=== PATIENT | male | born 1990 | race Hispanic/Latino ===

== ENCOUNTER 2023-10-29 17:20 | Inpatient (IN) | payer BC, SELFPAY ==
[2023-10-29] VITALS (18 sets, daily range): BP systolic 114–145; BP diastolic 62–79; PULSE 89–118; RESP 16–24; TEMP 36.8–37.7; O2SAT 99–100; BMI 29.6
--- NOTE | ~2023-10-29 | CT_ITS ---
EXAMINATION: CT chest abdomen pelvis w con DATE: 10/29/2023 18:45 INDICATION: Tachycardia. Anemia. Dyspnea. TECHNIQUE: Computed tomography (CT) of the chest, abdomen, and pelvis was performed with 100 mL Omnip aque 350 intravenous contrast. Automated exposure control and iterative reconstruction technique were employed. The dose-length product was 826.25 mGy-cm. COMPARISON: None FINDINGS: CHEST CT: The lungs demonstrate mild atelectasis. No pleural effusion. The heart size is normal. No pericardial effusion. There is mild thoracic spondylosis. ABDOMEN/PELVIS CT: There is a nodular surface contour, consistent with cirrhosis. There is a periumbilical portacaval sh unt. Esophageal varices are noted. There is moderate splenomegaly. The gallbladder is normal in size. Gallbladder wall thickening is likely secondary to chronic liver disease. The pancreas, adrenal glan ds, and left kidney are normal. There is a 6 mm cyst in right kidney. There are no dilated loops of b owel. The appendix is normal. Intra-abdominal edema is noted. There are no pathologically enlarged ly mph nodes. There is mild lumbar spondylosis. IMPRESSION: 1. Cirrhosis of the liver with portal venous hypertension. Reviewed, dictated and finalized at location A.
--- NOTE | ~2023-10-29 | XR_ITS ---
EXAMINATION: XR chest 2V DATE: 10/29/2023 17:40 INDICATION: Intermittent shortness of breath. TECHNIQUE: Frontal and lateral views of the chest were obtained. COMPARISON: None. FINDINGS: There is no pneumonia, pleural effusion, or pneumothorax. The heart size is normal. IMPRESSION: 1. No acute cardiopulmonary disease. Reviewed, dictated and finalized at location A.
--- NOTE | 2023-10-29 17:22 | ECG_ITS ---
Test Date: 2023-10-29 17:30:27 Measurements Intervals [place] Rate: 113 P: 61 LA: 157 QRS: 60 QRSD: 69 T: 39 QT: 264 QTc: 363 Interpretive Statements SINUS TACHYCARDIA ST DEVIATION AND MODERATE T-WAVE ABNORMALITY, CONSIDER LATERAL ISCHEMIA [-0.1+ mV T-WAVE IN I/aVL/V5/V6] No previous ECG available for comparison Electronically Signed On 10-30-2023 14:34:03 CDT by Jamie Freeman M.D.
--- NOTE | 2023-10-29 17:39 | ED.SOB ---
HPI - SOB/Dyspnea General Chief Complaint: Shortness of Breath/Dyspnea <Conner Jerome PA-C - Last Filed: 10/29/23 20:17> Stated Complaint: sob, Racing heart <Conner Jerome PA-C - Last Filed: 10/29/23 20:17> Time Seen by Provider: 10/29/23 17:25 <Conner Jerome PA-C - Last Filed: 10/29/23 20:17> Source: patient <Conner Jerome PA-C - Last Filed: 10/29/23 20:17> Mode of arrival: ambulatory <DAINA Bueno Last Filed: 10/29/23 20:17> Limitations: no limitations <Conner Jerome PA-C - Last Filed: 10/29/23 20:17> History of Present Illness HPI Narrative: This is a 33-year-old male with no pertinent PMH who presents to the ED for chief complaint of shortness of breath intermittent for the past couple of weeks. He works as a bus driver supervisor and states that he gets extremely winded whenever he starts to lift or carry anything. Reports that he is able to walk across the room but any further exertion causes him to become dyspneic. He also endorses occasional palpitations and feeling a racing heartbeat. does state that he had a recent upper respiratory infection a couple of weeks ago that he got over in 5 days. States that he had a similar episode like this few years ago and they did not find anything wrong. additionally states that he has had some intermittent neuro bright red rectal bleeding the usually only lasts for a week or 2. States that sometimes he gets spontaneous nose bleeds that self resolved as well. States that he does take regular iron supplements. Denies any current fevers, chills, sweats, cough, chest pain, back pain, abdominal pain, nausea, syncope, urinary symtpoms. Endorses social drinking and denies any drug use. <Conner Jerome PA-C - Last Filed: 10/29/23 20:17> Related Data Home Medications: Home Medications Medication Instructions Recorded Confirmed No Home Medications 10/29/23 10/29/23 <Conner Jerome PA-C - Last Filed: 10/29/23 20:17> Allergies/Adverse Reactions: Allergies Allergy/AdvReac Type Severity Reaction Status Date / Time No Known Allergies Allergy Verified 10/29/23 18:04 <Conner Jerome PA-C - Last Filed: 10/29/23 20:17> Review of Systems Review of Systems: All systems as dictated in HPI <Conner Jerome PA-C - Last Filed: 10/29/23 20:17> [facility] Past Medical History Medical History: Medical History (Updated 10/29/23 @ 20:40 by Dominik Patel MD) Alcohol abuse Anemia Cirrhosis of liver GI bleed <Conner Jerome PA-C - Last Filed: 10/29/23 20:17> Social History Social History: Social History (Updated 10/29/23 @ 20:04 by MELINDA Fong) Smoking status: Current some day smoker Smokeless tobacco user: other Additional smoking assessment comments: Patient admits to smoking marijuana only 3-4 days out of the week. Alcohol intake: current Drinks per week: 4 Alcohol use details: Hard liquor -[employer] Substance use: current Substance use type: marijuana Do You Feel Safe in your Home?: Yes Lack of Transportation: No Education: High School Diploma/GED Occupation/Education: occupation Additional occupation/education comments: Floral Decorator for [employer] <Conner Jerome PA-C - Last Filed: 10/29/23 20:17> Exam Narrative: GENERAL: Well-appearing, well-nourished, and in no acute distress. HEAD: Normocephalic, atraumatic. EYES: PERRLA and EOMI. ENT: Nares clear, no rhinorrhea or epistaxis. Mucous membranes moist. Oropharynx without tonsillar hypertrophy exudate or other lesions. NECK: Supple. No adenopathy or masses. CHEST: No respiratory distress. Clear to auscultation. No wheezes rales or rhonchi HEART: Tachycardic in the 115s. Regular rhythm. No murmur heard. Normal peripheral pulses. ABDOMEN: Soft, nontender, nondistended, normal active bowel sounds. MSK: Normal range of motion. No edema. SKIN: Warm, dry, no rash. Skin is jaundiced NEURO: Alert and oriented x4. No fo
[2023-10-29 17:54] LABS: Alanine Aminotransferase 23 U/L (6-50); Albumin Level 3.6 g/dL (3.5-5.1); Alkaline Phosphatase 164 U/L (38-126); Anion Gap 15 mmol/L (4-12); Aspartate Amino Transferase 58 U/L (17-59); Bilirubin,Total 1.7 mg/dL (0.2-1.3); Blood Urea Nitrogen 10 mg/dL (9-20); Calcium 8.1 mg/dL (8.4-10.2); Carbon Dioxide 17 mmol/L (22-30); Chloride 106 mmol/L (98-107); Estimated CRCL calculation 103 ml/min; Estimated Glomerular Filt Rate > 60; Glucose 108 mg/dL (65-110); Potassium 3.6 mmol/L (3.4-5.0); Sodium 138 mmol/L (137-145)
[2023-10-29 17:55] LABS: Basophils Percent Auto 0.1 % (0.2-1.2); Eosinophils Percent Auto 0.4 % (0-4.4); Immature Granulocyte Absolute 0.06 K/mm3 (0.00-0.031); Immature Granulocyte Percent A 0.8 % (0-0.5); Lymphocytes Absolute Auto 1.29 K/mm3 (0.9-3.2); Lymphocytes Percent Auto 17.9 % (18.3-44.2); Mean Corpuscular HGB Conc 24.4 g/dl (32-36); Mean Corpuscular Hemoglobin 15.8 pg (26-34); Mean Corpuscular Volume 64.7 fl (80-100); Monocytes Absolute Auto 0.4 K/mm3 (0.1-0.6); Monocytes Percent Auto 5.8 % (2.6-8.5); Neutrophils Absolute Auto 5.4 K/mm3 (1.3-6.7); Nucleated Red Blood Cells Perc 1.4 % (0.0-0.2); Platelet Count Result 206 k/mm3 (150-375); Red Blood Count 1.84 M/mm3 (4.6-6.20); Red Cell Distribution Width 20.7 % (11.5-14.5); White Blood Count 7.2 K/mm3 (4.5-10.0)
[2023-10-29 18:09] LABS: INR 1.3; Prothrombin Time 16.3 Seconds (11.1-14.7)
[2023-10-29 18:10] LABS: Partial Thromboplastin Time 31.9 Seconds (22.3-36.8)
[2023-10-29 18:15] LABS: D Dimer < 0.27 ug/mL (<0.48)
[2023-10-29 18:21] LABS: Iron 18 ug/dL (49-181); NT Pro B Type Natriuretic Pept 351 pg/mL (19.9-100); Troponin I 0.032 ng/mL (0.000-0.034)
[2023-10-29 18:22] LABS: Hemoglobin 2.9 g/dL (14.0-18.0)
[2023-10-29 18:23] LABS: Hematocrit 11.9 % (42.0-52.0)
[2023-10-29 18:25] LABS: Anisocytosis 2+; Hypochromasia 3+; Microcytosis 2+ (NORMAL); Platelet Estimate Adequate (Adequate); Tear Drop Cells 1+
[2023-10-29 18:27] LABS: Schistocytes None Seen
[2023-10-29 18:29] LABS: Lactate Dehydrogenase 159 U/L (120-246)
[2023-10-29 18:30] LABS: Percent Iron Saturation 4 % (20-50)
[2023-10-29 18:35] LABS: CRP 0.6 mg/dL (<1.0)
[2023-10-29 18:36] LABS: Transferrin 359 mg/dL (206-381)
[2023-10-29 18:43] LABS: Immature Reticulocyte Fraction 30.2 % (3.0-15.9); Reticulocyte Hemoglobin Conten 12.7 pg (28.2-36.6); Reticulocyte Percent 1.73 % (0.7-4.3); Reticulocytes Absolute 0.03 10^6/uL (0.02-0.10)
[2023-10-29 18:54] LABS: Thyroid Stimulating Hormone Reflex 0.607 uIU/mL (0.465-4.68)
[2023-10-29 18:59] LABS: Ferritin 4.38 ng/mL (17.9-464)
[2023-10-29 19:27] LABS: Add Urine Microscopic? YES; Appearance Urine Clear (Clear); Bilirubin Urine Negative (Negative); Blood Urine Negative (Negative); Color Urine Dark Yellow (Yellow); Glucose Urine UA Negative (Negative); Ketones Urine Negative (Negative); Leukocyte Esterase Ur Negative LEU/UL (Negative); Nitrate Urine Negative (Negative); Protein Urine Negative (Negative); Specific Grav Ur > 1.045 (1.001-1.035)
[2023-10-29 19:36] LABS: Folic Acid 3.9 ng/mL (2.76->20)
[2023-10-29] MEDS: SODIUM CHLORIDE 0.9% IV 250 ML 30 ML IV CONT (19:37)
[2023-10-29] MEDS: TUBING, BLOOD PLUM PUMP TUBING 1 EACH XX (19:37)
[2023-10-29 19:41] LABS: Amphetamine Screen Urine Negative (Negative); Barbiturate Screen Urine Negative (Negative); Benzodiazepines Screen Urine Negative (Negative); Cannabinoid Screen Urine Positive (Negative); Cocaine Screen Urine Negative (Negative); Methadone Screen Urine Negative (Negative); Opiate Screen Urine Negative (Negative); Phencyclidine Screen Urine Negative (Negative)
--- NOTE | 2023-10-29 19:55 | PM.IMHP ---
H&P: HPI History of Present Illness Date/Time: 10/29/23 19:55 Chief Complaint: This very pleasant 33-year-old male patient with no known past medical history hoarding to the patient presented to the emergency room this evening with complaints of shortness of breath intermittently for the past couple of weeks. Patient states activity such as working and ambulation exacerbates his dyspnea. He endorses that the feeling of dyspnea has been intermittent and cannot identify any factors that improved it at times, stating that it improved on its own or any factors that knowingly made it worse except for exertion. Patient does identify that he has had approximately 1 month of intermittent bright red stools. He denies any nausea, vomiting, diarrhea, abdominal pain when he has had this showing of rectal bleeding. He last saw bright red blood in his stool 1 week ago. Patient does not take any anticoagulants. He advised ER physician special event assistant that he takes regular iron supplementation, however he tells this provider that he does not take any home medications at all. He endorses that he has not seen a primary care provider in his adult life, and has only been seen in emergency rooms for acute needs over the course of the past 5 years once. Patient does admit to drinking alcohol a couple of times weekly and when he does it is hard liquor. He denies any use of nicotine but does smoke marijuana multiple times weekly. He does not partake in any other illicit drugs according to the patient. Patient denies that today there was any worsening of his symptoms he just felt as though it was time to come to the emergency room for evaluation. Specifically patient denies any acute abdominal pain, nausea, vomiting, diarrhea at this time. Patient endorses that he has not ever had a colonoscopy or EGD, and with previous episodes of vomiting over the past years he has never had any hematemesis. Upon arrival to the emergency room he was found to be tachycardic. EKG showing sinus tach with T-wave flattening in lead 1, aVL, V5 and V6. CBC was significant for hemoglobin of 2.9. No leukocytosis and no thrombocytopenia with platelets at 206. Metabolic panel is unremarkable. Retic count was 12.7, PT/PTT/INR all normal at 16.3/31.9 and 1.3 respectively. Iron is low at 18, total iron binding capacity is 472, % saturation is 4, transferrin is 359, ferritin is 4.38. ALT is 28, AST is 58, total bilirubin is 1.7, alk-phos is 164. Patient has a normal troponin, CRP and LDH. Alk-phos is minimally elevated at 164. Haptoglobin is pending. Chest x-ray was negative for any acute cardiopulmonary abnormalities. CT of the chest abdomen pelvis with contrast showing cirrhosis of the liver with portal venous hypertension. ER provider, DAMIEN Ross reportedly performed bedside BIBIANA that was negative for any occult blood. He spoke with GI, Dr. Arceo as well as seed tester, Dr. Yang regarding this patient and both advised they will consult with Dr. Yang requesting ICU admission at this time due to the severity of the anemia. 3 units packed red blood cells are ordered in ER and 1st unit infusing. Review of Systems Review of Systems: All systems reviewed & are unremarkable except as noted in HPI and below PMFSH Past Medical History Medical History (Updated 10/29/23 @ 20:23 by MELINDA Fong) Alcohol abuse Anemia Cirrhosis of liver GI bleed Social History Social History (Updated 10/29/23 @ 20:04 by MELINDA Fong) Smoking status: Current some day smoker Smokeless tobacco user: other Additional smoking assessment comments: Patient admits to smoking marijuana only 3-4 days out of the week. Alcohol intake: current Drinks per week: 4 Alcohol use details: Hard liquor -[employer] Substance use: current Substance use type: marijuana Do You Feel Safe in your Home?: Yes Lack of Transportation: No Education: High School Diploma/GED [employer]
--- NOTE | 2023-10-29 20:34 | ECG_ITS ---
Test Date: 2023-10-29 20:46:21 Measurements Intervals [place] Rate: 96 P: 51 PA: 152 QRS: 60 QRSD: 73 T: 32 QT: 307 QTc: 389 Interpretive Statements SINUS RHYTHM ST DEVIATION AND MODERATE T-WAVE ABNORMALITY, CONSIDER LATERAL ISCHEMIA [-0.1+ mV T-WAVE IN I/aVL/V5/V6] Compared to ECG 10/29/2023 17:30:27 Sinus tachycardia no longer present T-wave abnormality still present Possible ischemia still present Electronically Signed On 10-30-2023 14:41:27 CDT by Jamie Freeman M.D.
[2023-10-29 21:27] LABS: Troponin I 0.039 ng/mL (0.000-0.034)
[2023-10-29] MEDS: IRON SUCROSE COMPLEX 100 MG in SODIUM CHLORIDE 0.9% IV 50 ML 220 MG IVPB (21:40)
[2023-10-29 22:19] LABS: Folic Acid 4.6 ng/mL (2.76->20)
[2023-10-30] VITALS (31 sets, daily range): BP systolic 102–140; BP diastolic 65–88; PULSE 66–92; RESP 12–23; TEMP 36.6–37.1; O2SAT 100
--- NOTE | 2023-10-30 04:03 | ADMGEN ---
This patient, Mansoor Esteban, was admitted to Intensive Care Unit-11 10/29/232099. Patient/family oriented to hospital policies and general routines including ID bracelet, bed and alarms, visiting hours, pain management, procedures, bathroom and other care routines, personal items, smoking policy, room service/diet, and visiting hours. Information on how to activate the Rapid Response Team has been discussed. Patient/Family are encouraged to report perceived risks to care and to ask questions if they do not understand what they are told or what they should do.
[2023-10-30 05:42] LABS: Basophils Percent Auto 0.2 % (0.2-1.2); Immature Granulocyte Absolute 0.06 K/mm3 (0.00-0.031); Immature Granulocyte Percent A 1.4 % (0-0.5); Immature Platelet Fraction Pct 5.3 % (0.9-11.2); Lymphocytes Absolute Auto 0.87 K/mm3 (0.9-3.2); Mean Corpuscular HGB Conc 28.6 g/dl (32-36); Mean Corpuscular Hemoglobin 21.1 pg (26-34); Mean Platelet Volume 10.3 fl (7.4-10.4); Monocytes Absolute Auto 0.2 K/mm3 (0.1-0.6); Monocytes Percent Auto 4.6 % (2.6-8.5); Neutrophils Percent Auto 71.8 % (45.5-73.1); Nucleated Red Blood Cells Perc 1.4 % (0.0-0.2); Platelet Count Result 167 k/mm3 (150-375); Red Blood Count 2.46 M/mm3 (4.6-6.20); Red Cell Distribution Width 25.2 % (11.5-14.5); White Blood Count 4.1 K/mm3 (4.5-10.0)
[2023-10-30 05:47] LABS: Hemoglobin 5.2 g/dL (14.0-18.0)
[2023-10-30 05:48] LABS: Hematocrit 18.2 % (42.0-52.0)
[2023-10-30 05:50] LABS: INR 1.3; Prothrombin Time 16.4 Seconds (11.1-14.7)
[2023-10-30 05:56] LABS: Alanine Aminotransferase 19 U/L (6-50); Albumin Level 3.4 g/dL (3.5-5.1); Alkaline Phosphatase 149 U/L (38-126); Anion Gap 11 mmol/L (4-12); Aspartate Amino Transferase 48 U/L (17-59); Bilirubin,Total 2.4 mg/dL (0.2-1.3); Blood Urea Nitrogen 7 mg/dL (9-20); Carbon Dioxide 19 mmol/L (22-30); Chloride 108 mmol/L (98-107); Estimated CRCL calculation 131 ml/min; Estimated Glomerular Filt Rate > 60; Glucose 83 mg/dL (65-110); Magnesium 2.2 mg/dL (1.6-2.3); Potassium 3.7 mmol/L (3.4-5.0); Sodium 138 mmol/L (137-145)
[2023-10-30 06:16] LABS: Hypochromasia 3+; Platelet Estimate Adequate (Adequate)
[2023-10-30 06:17] LABS: Anisocytosis 2+; Microcytosis 2+ (NORMAL)
[2023-10-30 06:18] LABS: Schistocytes None Seen
[2023-10-30] MEDS: SODIUM CHLORIDE 0.9% IV 250 ML 30 ML IV CONT ×2 (07:00→14:30)
--- NOTE | 2023-10-30 09:48 | WPDCNINT ---
Assessment and Plan Assessment and plan (1) Anemia: Qualifiers: Anemia type: iron deficiency Iron deficiency anemia type: unspecified iron deficiency Qualified Code(s): D50.9 - Iron deficiency anemia, unspecified Code(s): D64.9 - Anemia, unspecified Status: Acute Assessment and Plan: Patient presented with dyspnea, palpitations, fatigue, bright red blood per rectum intermittently for the last 1 month. Last bleeding noted was 1 week prior to admission -in the ER patient's hemoglobin was 2.9 which could explain his symptoms -patient has been transfused 3 units of packed RBCs, hemoglobin up to 5.2 -4th unit of packed RBCs is being transfused this time, will recheck hemoglobin -coags are within normal limits -continue to monitor closely (2) GI bleed: Qualifiers: GI bleed type/associated pathology: unspecified gastrointestinal hemorrhage type Qualified Code(s): K92.2 - Gastrointestinal hemorrhage, unspecified Code(s): K92.2 - Gastrointestinal hemorrhage, unspecified Status: Suspected Assessment and Plan: Patient has bright red blood per rectum intermittently for the last 1 month, last bleeding noted was 1 week prior to admission -patient has a history of bright blood per rectum in 2021 when he was admitted to [facility] and colonoscopy, biopsies were done which are noted in the HPI of my consultation note -discussed with GI, appreciated the evaluation -colonoscopy and endoscopy planned for 10/31/2023 -clear liquid diet for now -NPO after midnight (3) Cirrhosis of liver: Qualifiers: Hepatic cirrhosis type: alcoholic cirrhosis Ascites presence: without ascites Qualified Code(s): K70.30 - Alcoholic cirrhosis of liver without ascites Code(s): K74.60 - Unspecified cirrhosis of liver Status: Chronic Assessment and Plan: Patient has a history of alcohol abuse -10/28: Showed cirrhosis of liver with portal venous hypertension CT chest, abdomen, pelvis -patient will need to follow-up with hepatology upon discharge from the hospital (4) Alcohol abuse: Code(s): F10.10 - Alcohol abuse, uncomplicated Status: Chronic Assessment and Plan: History of alcohol abuse -continues to drink few times a week, states he drinks beer and hard liquor -counseled patient on cessation of drinking alcohol altogether with CT scan of the abdomen showing cirrhosis with portal hypertension -will watch for alcohol withdrawal -continue folic acid and thiamine and -patient has been started Librium Plan DVT prophylaxis: SCDs, no chemoprophylaxis secondary to severe anemia and GI bleed Stress ulcer prophylaxis: Protonix IV q.12 hours Nutrition: Clear liquid diet for now, NPO after midnight for EGD and colonoscopy on 10/31/2023 Code Status: Full code Critical Care Time Spent: 47 minutes Discussed with patient, his sister and updated them with patient's condition and plan of care. I also discussed with Dr. Arceo (GI) Due to a high probability of clinically significant, life threatening deterioration, the patient required my highest level of preparedness to intervene emergently and I personally spent this critical care time directly and personally managing the patient. This critical care time included obtaining a history; examining the patient; pulse oximetry; ordering and review of studies; arranging urgent treatment with development of a management plan; evaluation of patient's response to treatment; frequent reassessment; and discussions with other providers. It was exclusive of separately billable procedures and treating other patients and teaching time. Please see Assessment and Plan section and the rest of the note for further information on patient assessment and treatment This dictation may have been done utilizing a voice recognition system. Attempts have been made to correct errors. However, there may be uncorrected grammatical, spelling,
[2023-10-30] MEDS: FOLIC ACID 1 MG TABLET PO (10:30)
[2023-10-30] MEDS: THIAMINE HCL 100 MG TABLET PO (10:33)
[2023-10-30 10:55] LABS: Basophils Percent Auto 0.2 % (0.2-1.2); Eosinophils Percent Auto 0.7 % (0-4.4); Hematocrit 22.3 % (42.0-52.0); Immature Granulocyte Absolute 0.08 K/mm3 (0.00-0.031); Immature Granulocyte Percent A 1.8 % (0-0.5); Immature Platelet Fraction Pct 5.4 % (0.9-11.2); Lymphocytes Absolute Auto 0.67 K/mm3 (0.9-3.2); Lymphocytes Percent Auto 14.7 % (18.3-44.2); Mean Corpuscular Hemoglobin 22.9 pg (26-34); Mean Corpuscular Volume 76.1 fl (80-100); Monocytes Absolute Auto 0.2 K/mm3 (0.1-0.6); Monocytes Percent Auto 3.7 % (2.6-8.5); Neutrophils Absolute Auto 3.6 K/mm3 (1.3-6.7); Neutrophils Percent Auto 78.9 % (45.5-73.1); Nucleated Red Blood Cells Perc 1.5 % (0.0-0.2); Platelet Count Result 154 k/mm3 (150-375); Red Blood Count 2.93 M/mm3 (4.6-6.20); Red Cell Distribution Width 25.9 % (11.5-14.5); White Blood Count 4.6 K/mm3 (4.5-10.0)
--- NOTE | 2023-10-30 11:07 | WPDGICN ---
Assessment and Plan Assessment and plan (1) GI bleed: Qualifiers: GI bleed type/associated pathology: unspecified gastrointestinal hemorrhage type Qualified Code(s): K92.2 - Gastrointestinal hemorrhage, unspecified Code(s): K92.2 - Gastrointestinal hemorrhage, unspecified Status: Suspected Assessment and Plan: had similar episode 2021 will repeat egd and colonoscopy to check for source of bleeding also noted new diagnosis of cirrhosis (2) Rectal bleeding: Code(s): K62.5 - Hemorrhage of anus and rectum Status: Acute (3) Acute on chronic anemia: Code(s): D64.9 - Anemia, unspecified Status: Acute Assessment and Plan: monitor for more signs of bleeding keep hgb>7 (4) Cirrhosis of liver: Qualifiers: Hepatic cirrhosis type: alcoholic cirrhosis Ascites presence: without ascites Qualified Code(s): K70.30 - Alcoholic cirrhosis of liver without ascites Code(s): K74.60 - Unspecified cirrhosis of liver Status: Chronic Assessment and Plan: h/o alcohol abuse will complete full liver work up (5) Alcohol abuse: Code(s): F10.10 - Alcohol abuse, uncomplicated Status: Chronic GI Consult Note Consult date/time: 10/30/23 11:07 Reason for consult: symptomatic anemia, new diagnosis of cirrhosis HPI: Mansoor Esteban is a 33 year old male with history of alcohol abuse (used to be daily heavy drinker for years but says that last 2-3 years only socially), anemia (admitted to [facility] in 2021 for similar symptoms) here with symptomatic anemia. He says that for last month noted intermittent bright red blood per rectum intermittently and lately more dyspnea, palpitation, fatigue. Denies any nausea, vomiting, diarrhea, abdominal pain. Patient is not on any anticoagulation, does not take any medications at home and last time saw doctor was when had similar episode of GIB 2021 (also required blood transfusion). Smokes marijuana but denies any other illicit drugs. ER patient was found to have a hemoglobin of 2.9, INR of 1.3, platelets of 206, normal WBC, normal renal function. Low ferritin 4, ALT 28 AST 58, total bilirubin 1.7, alk phos 164. Normal LDH. Chest x-ray did not show any acute cardiopulmonary abnormalities. CT of the chest abdomen pelvis showed cirrhosis of the liver with portal venous hypertension. Records reviewed when was admitted at [facility] from 10/11/2021 TO 10/14/2021 with blood in stools, severe anemia with a hemoglobin of 3.7 requiring a total 5 units of packed RBC transfusions. Right upper quadrant ultrasound was consistent with hepatic steatosis: No gallstones were visualized at that time. Hepatitis panel was negative at that time. Colonoscopy showed nonbleeding internal hemorrhoids. Diffuse area of mild friable with contact bleeding mucosa was found in the entire colon terminal ileum appeared normal. Large bowel random colon biopsy with normal colonic mucosa, he did not have EGD. Currently getting blood transfusion. Review of Systems Constitutional: Constitutional: Reports fatigue and Reports lethargy Eyes: Eyes: Denies blurry vision ENT: Reports Normal hearing present and Denies neck pain Cardiovascular: Cardiovascular: Reports lightheadedness Respiratory: Respiratory: Reports dyspnea on exertion Gastrointestinal: Gastrointestinal: Reports hematochezia Genitourinary: Genitourinary: Denies dysuria Musculoskeletal: Musculoskeletal: Denies neck pain Integumentary/Breasts: Skin/Breast: Denies dry skin Neurologic: Reports Normal hearing present Psychiatric: Psychiatric: Denies anxiety Endocrine: Endocrine: Denies change in body appearance Allergic/Immunologic: Allergic/Immunologic: Denies urticaria PMFSH Past Medical History Medical History (Updated 10/30/23 @ 11:12 by Alberto Messer MD) Acute on chronic anemia Alcohol abuse Anemia Cirrhosis of liver GI bleed Rectal blee
[2023-10-30 11:15] LABS: Hemoglobin 6.7 g/dL (14.0-18.0)
[2023-10-30 11:17] LABS: Platelet Estimate Slightly Decreased (Adequate)
[2023-10-30 11:18] LABS: Anisocytosis 2+; Hypochromasia 2+; Microcytosis 2+ (NORMAL); Ovalocytes 1+
[2023-10-30 11:19] LABS: Basophilic Stippling 1+; Schistocytes None Seen
[2023-10-30] MEDS: DEXTROSE 5%/0.9% SOD CHL 1,000 ML 125 ML IV CONT ×2 (11:28→20:01)
[2023-10-30] MEDS: PANTOPRAZOLE SODIUM IV 40 MG VIAL IV PUSH ×2 (11:31→20:01)
--- NOTE | 2023-10-30 12:10 | PM.IMPN ---
Progress Note: A&P Assessment and Plan (1) Anemia: Qualifiers: Anemia type: iron deficiency Iron deficiency anemia type: unspecified iron deficiency Qualified Code(s): D50.9 - Iron deficiency anemia, unspecified Code(s): D64.9 - Anemia, unspecified Status: Acute Assessment and Plan: Patient presented with dyspnea, palpitations and fatigue with complaints of bright red blood per rectum intermittently for the last 1 month. Last bleeding noted was 1 week prior to admission. In the ER patient's hemoglobin was 2.9. Patient was transfused 3 units of packed RBCs that brought his Hgb to 5.2. 4th unit of packed RBCs transfused and repeat hemoglobin 6.7 PT 16.3 with INR 1.3 and normal PTT. WBC and platelet counts normal. No schistocytes seen. LDH normal. [place] profound anemia related to acute blood loss. Consider hereditary hemorrhagic telangeictasis which can cause pulm HTN but sure this would lead to cirrhosis. . Continue to trend HH and transfuse as needed (2) GI bleed: Qualifiers: GI bleed type/associated pathology: unspecified gastrointestinal hemorrhage type Qualified Code(s): K92.2 - Gastrointestinal hemorrhage, unspecified Code(s): K92.2 - Gastrointestinal hemorrhage, unspecified Status: Suspected Assessment and Plan: Patient has bright red blood per rectum intermittently for the last 1 month. Patient has a history of bright blood per rectum in 2021 when he was admitted to [facility]. Hgb 3.7 and received 5U PRBCs. RUQ US showed hepatic steatosis. Colonoscopy showed nonbleeding internal hemorrhoids, diffuse area of mild friable with contact bleeding mucosa t/o colon but terminal ileum appeared normal. Small-bowel biopsy with normal small intestinal mucosa. Large bowel random colon biopsy with normal colonic mucosa. CT of the Abd/pelvis was concerning for mild hepatic splenomegaly, peripheral wedge-shaped areas of hypo attenuation in the left kidney may represent pyelonephritis or renal infarcts and stranding surrounding the 2nd and 3rd portions of the duodenum may represent duodenitis. Findings suspicious for sub acute to chronic findings of inflammatory bowel disease including submucosal fat deposition in the terminal ileum, transverse and ascending colon with mild adjacent soft tissue stranding. CT Abd/Pelvis here showing liver cirrhosis with portal venous HTN. GI consulted. Plan for EGD and colonoscopy. Appreciate their input. Clear liquid diet for now Continue PPI. NPO after midnight (3) Cirrhosis of liver: Qualifiers: Ascites presence: without ascites Hepatic cirrhosis type: alcoholic cirrhosis Qualified Code(s): K70.30 - Alcoholic cirrhosis of liver without ascites Code(s): K74.60 - Unspecified cirrhosis of liver Status: Chronic Assessment and Plan: Patient has a history of alcohol abuse. RUQ US in 2021 showing hepatic steatosis but CT Abd here showing liver cirrhosis. Will need workup for cirrhosis; some levels will be inaccurate since he has received multiple transfusions. He was educated about the benefits of abstaining from alcohol (4) Alcohol abuse: Code(s): F10.10 - Alcohol abuse, uncomplicated Status: Chronic Assessment and Plan: History of alcohol abuse. He admits to drinking 2 per weekend but admitted to consuming more to other providers. Patient was counseled on benefits of cessation of drinking alcohol altogether CIWA protocol started but score low Continue Librium, folic acid and thiamine Plan DVT prophylaxis: SCDs, no chemoprophylaxis secondary to severe anemia and GI bleed Stress ulcer prophylaxis: Protonix IV q.12 hours Nutrition: Clear liquid diet for now, NPO after midnight for EGD and colonoscopy on 10/31/2023 Code Status: Full code Subjective Date/time seen: 10/30/23 12:10 Interval history: 33yo healthy male here for SOB. Patient was unaware that he had cirrhosis. He h
[2023-10-30 12:28] LABS: Glucose Point of Care 80 mg/dl (65-105)
[2023-10-30] MEDS: polyethylene glycoL 3350 238 GM BOTTLE PO (17:30)
[2023-10-30 18:45] LABS: Hematocrit 26.3 % (42.0-52.0); Hemoglobin 7.6 g/dL (14.0-18.0)
[2023-10-30] MEDS: BISACODYL 5 MG TABLET EC 20 MG PO (18:49)
[2023-10-30 20:09] LABS: Glucose Point of Care 127 mg/dl (65-105)
[2023-10-30 21:08] LABS: IFOB Positive Control Positive; Immunochemical Fecal Occult Bl Negative (N)
[2023-10-30 21:29] LABS: Hematocrit 25.8 % (42.0-52.0); Hemoglobin 7.5 g/dL (14.0-18.0)
[2023-10-30 23:21] LABS: Glucose Point of Care 81 mg/dl (65-105)
[2023-10-31] VITALS (10 sets, daily range): BP systolic 103–127; BP diastolic 65–78; PULSE 72–102; RESP 18–22; TEMP 36.6–37.2; O2SAT 97–100
[2023-10-31] MEDS: chlordiazePOXIDE (*CRX) 25 MG CAPSULE PO ×2 (00:17→06:33)
[2023-10-31] MEDS: MAGNESIUM CITRATE 300 ML BTL PO (00:17)
[2023-10-31] MEDS: ONDANSETRON INJ 4 MG/2 ML VIAL IV PUSH (01:07)
[2023-10-31 05:00] LABS: Basophils Percent Auto 0.4 % (0.2-1.2); Eosinophils Absolute Auto 0.1 K/mm3 (0-0.3); Eosinophils Percent Auto 0.8 % (0-4.4); Hematocrit 26.1 % (42.0-52.0); Hemoglobin 7.6 g/dL (14.0-18.0); Immature Granulocyte Percent A 1.4 % (0-0.5); Immature Platelet Fraction Pct 5.8 % (0.9-11.2); Lymphocytes Absolute Auto 0.71 K/mm3 (0.9-3.2); Mean Corpuscular HGB Conc 29.1 g/dl (32-36); Mean Corpuscular Hemoglobin 22.8 pg (26-34); Mean Corpuscular Volume 78.4 fl (80-100); Mean Platelet Volume 10.4 fl (7.4-10.4); Monocytes Absolute Auto 0.3 K/mm3 (0.1-0.6); Monocytes Percent Auto 4.2 % (2.6-8.5); Neutrophils Absolute Auto 5.9 K/mm3 (1.3-6.7); Neutrophils Percent Auto 83.2 % (45.5-73.1); Nucleated Red Blood Cells Perc 0.8 % (0.0-0.2); Platelet Count Result 172 k/mm3 (150-375); Red Blood Count 3.33 M/mm3 (4.6-6.20); Red Cell Distribution Width 25.5 % (11.5-14.5); White Blood Count 7.1 K/mm3 (4.5-10.0)
[2023-10-31 05:07] LABS: Alanine Aminotransferase 24 U/L (6-50); Albumin Level 3.6 g/dL (3.5-5.1); Alkaline Phosphatase 150 U/L (38-126); Anion Gap 11 mmol/L (4-12); Aspartate Amino Transferase 65 U/L (17-59); Bilirubin,Total 3.1 mg/dL (0.2-1.3); Blood Urea Nitrogen 3 mg/dL (9-20); Calcium 8.1 mg/dL (8.4-10.2); Carbon Dioxide 18 mmol/L (22-30); Chloride 109 mmol/L (98-107); Estimated CRCL calculation 151 ml/min; Estimated Glomerular Filt Rate > 60; Glucose 95 mg/dL (65-110); Magnesium 2.3 mg/dL (1.6-2.3); Phosphorus 3.6 mg/dL (2.5-4.5); Sodium 138 mmol/L (137-145)
[2023-10-31 05:08] LABS: Glucose Point of Care 88 mg/dl (65-105)
[2023-10-31 05:24] LABS: Platelet Estimate Adequate (Adequate)
[2023-10-31 05:25] LABS: Anisocytosis 2+; Hypochromasia 1+; Schistocytes Rare
[2023-10-31 05:26] LABS: Polychromasia 1+
[2023-10-31 05:57] LABS: Hepatitis B Surface Antigen Negative (Negative)
[2023-10-31 06:03] LABS: HAV RESULT Negative (Negative); Hepatitis B Core IgM Result Negative (Negative)
[2023-10-31 06:14] LABS: Hepatitis C Virus Antibody Negative (Negative)
[2023-10-31] MEDS: DEXTROSE 5%/0.9% SOD CHL 1,000 ML 125 ML IV CONT (06:33)
--- NOTE | 2023-10-31 07:00 | PC.NURSE ---
To GI Lab on stretcher with DIYA Delgado @ 0700, IV x1 (this RN unable to start secondary prior to their arrival having just gotten report.) Report given from previous shift RN to GI Lab
[2023-10-31] MEDS: LACTATED RINGERS 1,000 ML 150 ML IV CONT (07:19)
--- NOTE | 2023-10-31 07:31 | WPDANESEPPF ---
Anes - Initial Pre Proc Eval Procedure: Operation Date: 10/31/23 08:00 Proposed Procedures p Esophagogastroduodenoscopy & Colonoscopy - Alberto Messer MD Date/Time: 10/31/23 07:31 Surgeon: Osman Drummond MD Pre Op Diagnosis: Anemia, Cirrhosis Patient Data Age: 33 Gender: M Height: 1.68 m Weight: 83.3 kg Last Vital Signs Temp 97.8 F 10/31/23 07:19 Pulse 83 10/31/23 07:19 Resp 18 10/31/23 07:19 BP 121/78 10/31/23 07:19 Pulse Ox 100 10/31/23 07:19 O2 Del Method Room Air 10/31/23 07:19 O2 Flow Rate 2 10/29/23 18:16 Allergies Allergy/AdvReac Type Severity Reaction Status Date / Time No Known Allergies Allergy Verified 10/31/23 07:17 Home Medications Medication Instructions Recorded Confirmed Type No Home Medications 10/29/23 10/29/23 History Laboratory Tests 10/29/23 10/30/23 10/30/23 18:13 10:49 12:25 WBC 4.6 K/mm3 (4.5-10.0) RBC 2.93 L M/mm3 (4.6-6.20) Hgb 6.7 L* g/dL (14.0-18.0) Hct 22.3 L % (42.0-52.0) MCV 76.1 L fl (80-100) MCH 22.9 L D pg (26-34) MCHC 30.0 L g/dl (32-36) RDW 25.9 H % (11.5-14.5) Plt Count 154 k/mm3 (150-375) MPV TNP Immature Gran % (Auto) 1.8 H % (0-0.5) Neut % (Auto) 78.9 H % (45.5-73.1) Lymph % (Auto) 14.7 L % (18.3-44.2) Bureau % (Auto) 3.7 % (2.6-8.5) Eos % (Auto) 0.7 % (0-4.4) Baso % (Auto) 0.2 % (0.2-1.2) Lymph # (Auto) 0.67 L K/mm3 (0.9-3.2) Bureau # (Auto) 0.2 K/mm3 (0.1-0.6) Eos # (Auto) 0.0 K/mm3 (0-0.3) Baso # (Auto) 0.0 K/mm3 (0.0-0.1) Abs Immat Gran (auto) 0.08 H K/mm3 (0.00-0.031) Absolute Neuts (auto) 3.6 K/mm3 (1.3-6.7) Absolute Nucleated RBC 0.070 H K/mm3 (0.0-0.012) Nucleated RBC % 1.5 H % (0.0-0.2) Platelet Estimate Slightly decreased (Adequate) % Immature Plt Fraction 5.4 % (0.9-11.2) Polychromasia Hypochromasia 2+ Basophilic Stippling 1+ Anisocytosis 2+ Microcytosis 2+ (NORMAL) Ovalocytes 1+ Schistocytes None seen Sodium Potassium Chloride Carbon Dioxide Anion Gap BUN Creatinine Estim Creat Clear Calc Estimated GFR Glucose POC Capillary Glucose 80 mg/dl (65-105) Calcium Phosphorus Magnesium Total Bilirubin AST ALT Alkaline Phosphatase Total Protein Albumin Alpha-1-AT Phenotype Ceruloplasmin Stl Occult Blood (IFOB) Mitochondria M2 IgG Ab Actin IgG Antibody Hepatitis A IgM Ab Hep Bs Antigen Hep B Core IgM Ab Hepatitis C Ab Screen Blood Type O Positive Antibody Screen Negative Crossmatch See Detail 10/30/23 10/30/23 10/30/23 18:32 20:07 20:23 WBC RBC Hgb 7.6 L g/dL (14.0-18.0) Hct 26.3 L % (42.0-52.0) MCV MCH MCHC RDW Plt Count MPV Immature Gran % (Auto) Neut % (Auto) Lymph % (Auto) Bureau % (Auto) Eos % (Auto) Baso % (Auto) Lymph # (Auto) Bureau # (Auto) Eos # (Auto) Baso # (Auto) Abs Immat Gran (auto) Absolute Neuts (auto) Absolute Nucleated RBC Nucleated RBC % Platelet Estimate % Immature Plt Fraction Polyc
[2023-10-31] MEDS: BENZOCAINE (*SP) 60 ML SPRAY CAN (HURRICAINE) 1 SPRAY MUCOUS MEM (07:52)
--- NOTE | 2023-10-31 08:00 | SUR.OPER ---
EGD END 0757 COLONOSCOPY START 08
--- NOTE | 2023-10-31 08:50 | PC.NURSE ---
Returned from GI Lab. Report received from DIYA Delgado to DIYA Owens
[2023-10-31] MEDS: THIAMINE HCL 100 MG TABLET PO (09:26)
[2023-10-31] MEDS: PANTOPRAZOLE SODIUM IV 40 MG VIAL IV PUSH (09:26)
[2023-10-31] MEDS: FOLIC ACID 1 MG TABLET PO (09:26)
--- NOTE | 2023-10-31 09:47 | PM.IMPN ---
Progress Note: A&P Assessment and Plan (1) Anemia: Qualifiers: Anemia type: iron deficiency Iron deficiency anemia type: unspecified iron deficiency Qualified Code(s): D50.9 - Iron deficiency anemia, unspecified Code(s): D64.9 - Anemia, unspecified Status: Acute Assessment and Plan: Patient presented with dyspnea, palpitations and fatigue with complaints of bright red blood per rectum intermittently for the last 1 month. Last bleeding noted was 1 week prior to admission. In the ER patient's hemoglobin was 2.9. Patient was transfused a total of 5 units of packed RBCs that brought his Hgb to 7 range. PT 16.3 with INR 1.3 and normal PTT. WBC and platelet counts normal. No schistocytes seen but now rare noted this morning (felt related to transfused blood then from hemolysis). LDH normal but Tbili elevated. [place] profound anemia related to acute blood loss given the hx but stool guaiac negative here. Consider hereditary hemorrhagic telangiectasis but no obvious large AVMs by imaging. Continue to trend HH and transfuse as needed (2) GI bleed: Qualifiers: GI bleed type/associated pathology: unspecified gastrointestinal hemorrhage type Qualified Code(s): K92.2 - Gastrointestinal hemorrhage, unspecified Code(s): K92.2 - Gastrointestinal hemorrhage, unspecified Status: Suspected Assessment and Plan: Patient has bright red blood per rectum intermittently for the last 1 month. Patient has a history of bright blood per rectum in 2021 when he was admitted to [facility]. His Hgb was 3.7 at that time and he received 5U PRBCs. RUQ US showed hepatic steatosis. Colonoscopy showed nonbleeding internal hemorrhoids, diffuse area of mild friable with contact bleeding mucosa t/o colon but terminal ileum appeared normal. Small-bowel biopsy with normal small intestinal mucosa. Large bowel random colon biopsy with normal colonic mucosa. CT of the Abd/pelvis was concerning for mild hepatic splenomegaly, peripheral wedge-shaped areas of hypo attenuation in the left kidney may represent pyelonephritis or renal infarcts and stranding surrounding the 2nd and 3rd portions of the duodenum may represent duodenitis. Findings suspicious for sub acute to chronic findings of inflammatory bowel disease including submucosal fat deposition in the terminal ileum, transverse and ascending colon with mild adjacent soft tissue stranding. CT Abd/Pelvis here showing liver cirrhosis, periumbilical portacaval shunt, esophageal varices and moderate splenomegaly. GI consulted. Today, EGD showing mild gastritis but no varices. Colonoscopy showing a few small-sized internal hemorrhoids in rectum. Diet advanced to regular. Continue PPI. Plan for capsule study as outpatient. (3) Cirrhosis of liver: Qualifiers: Ascites presence: without ascites Hepatic cirrhosis type: alcoholic cirrhosis Qualified Code(s): K70.30 - Alcoholic cirrhosis of liver without ascites Code(s): K74.60 - Unspecified cirrhosis of liver Status: Chronic Assessment and Plan: Patient has a history of alcohol abuse. RUQ US in 2021 showing hepatic steatosis but CT Abd here showing liver cirrhosis. Will need workup for cirrhosis; some levels will be inaccurate since he has received multiple transfusions. Hepatitis panel negative. He was educated about the benefits of abstaining from alcohol (4) Alcohol abuse: Code(s): F10.10 - Alcohol abuse, uncomplicated Status: Chronic Assessment and Plan: History of alcohol abuse. He admits to drinking 2 per weekend but admitted to consuming more to other providers. Patient was counseled on benefits of cessation of drinking alcohol altogether CIWA protocol started but score low Continue folic acid and thiamine. Change Librium to prn Plan DVT prophylaxis: SCDs, no chemoprophylaxis secondary to severe anemia and GI bleed Code Status: Full code Subjective Date/time se
--- NOTE | 2023-10-31 11:26 | WPDINTPN ---
Progress Note: A&P Assessment and Plan (1) Anemia: Qualifiers: Anemia type: iron deficiency Iron deficiency anemia type: unspecified iron deficiency Qualified Code(s): D50.9 - Iron deficiency anemia, unspecified Code(s): D64.9 - Anemia, unspecified Status: Acute Assessment and Plan: Patient presented with dyspnea, palpitations, fatigue, bright red blood per rectum intermittently for the last 1 month. Last bleeding noted was 1 week prior to admission -in the ER patient's hemoglobin was 2.9 which could explain his symptoms -10/30/2023: Total 5 units of packed RBCs were transfused -coags are within normal limits -hemoglobin remained stable this morning -continue to monitor (2) GI bleed: Qualifiers: GI bleed type/associated pathology: unspecified gastrointestinal hemorrhage type Qualified Code(s): K92.2 - Gastrointestinal hemorrhage, unspecified Code(s): K92.2 - Gastrointestinal hemorrhage, unspecified Status: Suspected Assessment and Plan: Patient has bright red blood per rectum intermittently for the last 1 month, last bleeding noted was 1 week prior to admission -patient has a history of bright blood per rectum in 2021 when he was admitted to [facility] and colonoscopy, biopsies were done which are noted in the HPI of my consultation note -discussed with GI, appreciated the evaluation -10/30: EGD showed gastritis without any bleeding -10/30: Colonoscopy showed few small size internal hemorrhoids in the rectum which were not actively bleeding, no AVM no colitis, no diverticula, no polyps, no signs of bleeding -patient started on regular diet by GI (3) Cirrhosis of liver: Qualifiers: Hepatic cirrhosis type: alcoholic cirrhosis Ascites presence: without ascites Qualified Code(s): K70.30 - Alcoholic cirrhosis of liver without ascites Code(s): K74.60 - Unspecified cirrhosis of liver Status: Chronic Assessment and Plan: Patient has a history of alcohol abuse -10/28: Showed cirrhosis of liver with portal venous hypertension CT chest, abdomen, pelvis -patient will need to follow-up with hepatology upon discharge from the hospital (4) Alcohol abuse: Code(s): F10.10 - Alcohol abuse, uncomplicated Status: Chronic Assessment and Plan: History of alcohol abuse -continues to drink few times a week, states he drinks beer and hard liquor -counseled patient on cessation of drinking alcohol altogether with CT scan of the abdomen showing cirrhosis with portal hypertension -will watch for alcohol withdrawal -continue folic acid and thiamine and -patient has been started Librium -patient needs to quit drinking and was counseled about cessation of alcohol use Plan DVT prophylaxis: SCDs, no chemoprophylaxis secondary to severe anemia and GI bleed Stress ulcer prophylaxis: Protonix q.a.m. Nutrition: Regular diet Code Status: Full code Critical Care Time Spent: 32 minutes Discussed with patient, and updated with his plan of care Discussed with rhett Scales to transfer to medical floor Due to a high probability of clinically significant, life threatening deterioration, the patient required my highest level of preparedness to intervene emergently and I personally spent this critical care time directly and personally managing the patient. This critical care time included obtaining a history; examining the patient; pulse oximetry; ordering and review of studies; arranging urgent treatment with development of a management plan; evaluation of patient's response to treatment; frequent reassessment; and discussions with other providers. It was exclusive of separately billable procedures and treating other patients and teaching time. Please see Assessment and Plan section and the rest of the note for further information on patient assessment and treatment This dictation may have been done utilizing a voice recognition system.
--- NOTE | 2023-10-31 14:44 | PC.NURSE ---
This patient, Mansoor Esteban, was received from ICU 11 on 10/31/23 at 1445. Patient/family oriented to unit policies and routines
[2023-10-31 17:13] LABS: Hematocrit 25.1 % (42.0-52.0); Hemoglobin 7.3 g/dL (14.0-18.0)
[2023-11-01 05:18] LABS: Basophils Percent Auto 0.2 % (0.2-1.2); Eosinophils Absolute Auto 0.1 K/mm3 (0-0.3); Eosinophils Percent Auto 1.1 % (0-4.4); Hematocrit 24.3 % (42.0-52.0); Immature Granulocyte Absolute 0.04 K/mm3 (0.00-0.031); Immature Granulocyte Percent A 0.9 % (0-0.5); Immature Platelet Fraction Pct 5.3 % (0.9-11.2); Lymphocytes Absolute Auto 0.89 K/mm3 (0.9-3.2); Mean Corpuscular HGB Conc 28.8 g/dl (32-36); Mean Corpuscular Hemoglobin 22.4 pg (26-34); Mean Corpuscular Volume 77.6 fl (80-100); Mean Platelet Volume 10.6 fl (7.4-10.4); Monocytes Absolute Auto 0.2 K/mm3 (0.1-0.6); Monocytes Percent Auto 5.4 % (2.6-8.5); Neutrophils Absolute Auto 3.2 K/mm3 (1.3-6.7); Neutrophils Percent Auto 72.4 % (45.5-73.1); Nucleated Red Blood Cells Perc 0.4 % (0.0-0.2); Platelet Count Result 171 k/mm3 (150-375); Red Blood Count 3.13 M/mm3 (4.6-6.20); Red Cell Distribution Width 26.5 % (11.5-14.5); White Blood Count 4.5 K/mm3 (4.5-10.0)
[2023-11-01 05:32] LABS: Alanine Aminotransferase 28 U/L (6-50); Alkaline Phosphatase 148 U/L (38-126); Anion Gap 8 mmol/L (4-12); Aspartate Amino Transferase 62 U/L (17-59); Bilirubin,Total 2.3 mg/dL (0.2-1.3); Blood Urea Nitrogen 4 mg/dL (9-20); Calcium 8.1 mg/dL (8.4-10.2); Carbon Dioxide 20 mmol/L (22-30); Chloride 109 mmol/L (98-107); Estimated CRCL calculation 131 ml/min; Estimated Glomerular Filt Rate > 60; Glucose 76 mg/dL (65-110); Phosphorus 3.6 mg/dL (2.5-4.5); Potassium 3.4 mmol/L (3.4-5.0); Sodium 137 mmol/L (137-145)
[2023-11-01 05:40] LABS: Platelet Estimate Adequate (Adequate)
[2023-11-01 05:42] LABS: Polychromasia 1+
[2023-11-01 05:43] LABS: Hypochromasia 2+
[2023-11-01 05:44] LABS: Anisocytosis 1+; Microcytosis 1+ (NORMAL); Schistocytes None Seen; Target Cells 1+
[2023-11-01 06:00] VITALS: BP 124/73; PULSE 73; RESP 20; TEMP 36.9; O2SAT 99
[2023-11-01] MEDS: PANTOPRAZOLE 40 MG TABLET PO (08:25)
[2023-11-01] MEDS: FOLIC ACID 1 MG TABLET PO (08:25)
[2023-11-01] MEDS: THIAMINE HCL 100 MG TABLET PO (08:25)
[2023-11-01 11:27] LABS: Ammonia 38 umol/L (9-30)
[2023-11-01 11:29] LABS: Hematocrit 25.9 % (42.0-52.0); Hemoglobin 7.6 g/dL (14.0-18.0)
[2023-11-01] MEDS: FERROUS SULFATE 325 MG TABLET DR PO (11:54)
--- NOTE | 2023-11-01 12:10 | PM.DS ---
DS: Admitting Diagnosis Discharge Date 11/01/23 Admitting Diagnosis SOB DS: Discharge Diagnosis Discharge Diagnosis (1) Anemia: Qualifiers: Anemia type: iron deficiency Iron deficiency anemia type: unspecified iron deficiency Qualified Code(s): D50.9 - Iron deficiency anemia, unspecified Code(s): D64.9 - Anemia, unspecified Status: Acute (2) GI bleed: Qualifiers: GI bleed type/associated pathology: unspecified gastrointestinal hemorrhage type Qualified Code(s): K92.2 - Gastrointestinal hemorrhage, unspecified Code(s): K92.2 - Gastrointestinal hemorrhage, unspecified Status: Suspected (3) Cirrhosis of liver: Qualifiers: Hepatic cirrhosis type: alcoholic cirrhosis Ascites presence: without ascites Qualified Code(s): K70.30 - Alcoholic cirrhosis of liver without ascites Code(s): K74.60 - Unspecified cirrhosis of liver Status: Chronic (4) Alcohol abuse: Code(s): F10.10 - Alcohol abuse, uncomplicated Status: Chronic (5) Gastritis: Code(s): K29.70 - Gastritis, unspecified, without bleeding Status: Acute DS: Summary Hospital Course Reason for hospitalization: 33yo healthy male here for SOB. Please see H&P for details Hospital Course: Patient presented with dyspnea, palpitations and fatigue with complaints of bright red blood per rectum intermittently for the last 1 month. Last bleeding noted was 1 week prior to admission. In the ER patient's hemoglobin was 2.9 that was microcytic. Guaiac stool was negative. Patient was transfused a total of 5 units of packed RBCs that brought his Hgb to 7 range. PT 16.3 with INR 1.3 and normal PTT. WBC and platelet counts normal. No schistocytes seen but now rare noted but felt related to transfused blood then from hemolysis. B12/folate/TSH normal. Iron studies consistent with iron deficiency anemia. LDH normal but Tbili elevated. [place] profound anemia probably related to acute blood loss given the hx and iron deficiency but stool guaiac negative here. Consider hereditary hemorrhagic telangiectasis but no obvious large AVMs by imaging and no telangiectasias. Patient has a history of bright blood per rectum in 2021 when he was admitted to [facility]. His Hgb was 3.7 at that time and he received 5U PRBCs. RUQ US showed hepatic steatosis. Colonoscopy showed nonbleeding internal hemorrhoids, diffuse area of mild friable with contact bleeding mucosa t/o colon but terminal ileum appeared normal. Small-bowel biopsy with normal small intestinal mucosa. Large bowel random colon biopsy with normal colonic mucosa. CT of the Abd/pelvis was concerning for mild hepatic splenomegaly, peripheral wedge-shaped areas of hypo attenuation in the left kidney may represent pyelonephritis or renal infarcts and stranding surrounding the 2nd and 3rd portions of the duodenum may represent duodenitis. Findings suspicious for sub acute to chronic findings of inflammatory bowel disease including submucosal fat deposition in the terminal ileum, transverse and ascending colon with mild adjacent soft tissue stranding. CT Abd/Pelvis here showing liver cirrhosis, periumbilical portacaval shunt, esophageal varices and moderate splenomegaly. GI consulted. EGD showing mild gastritis but no varices. Colonoscopy showing a few small-sized internal hemorrhoids in rectum. Diet advanced to regular. We continued PPI for the gastritis. Plan for capsule study as outpatient. Hematology consulted but not available for consult so will plan for outpatient visit. Patient has a history of alcohol abuse. RUQ US in 2021 showing hepatic steatosis but CT Abd here showing liver cirrhosis. Workup for cirrhosis in progress. Hepatitis panel negative. Patient was counseled on benefits of cessation of drinking alcohol altogether. CIWA protocol started but score low. He was treated with folic acid and thiamine. He overall did well and wa able to be discharged on 11/01/23.
--- NOTE | 2023-11-01 14:22 | WPDGIPROGNO ---
Progress Note: A&P Assessment and Plan (1) Acute on chronic anemia: Code(s): D64.9 - Anemia, unspecified Status: Acute Assessment and Plan: unremarkable egd and colonoscopy similar episode in 2021 he will need follow-up with hematology, also will order capsule endoscopy as outpatient ok to go home (2) Rectal bleeding: Code(s): K62.5 - Hemorrhage of anus and rectum Status: Acute (3) Cirrhosis of liver: Qualifiers: Hepatic cirrhosis type: alcoholic cirrhosis Ascites presence: without ascites Qualified Code(s): K70.30 - Alcoholic cirrhosis of liver without ascites Code(s): K74.60 - Unspecified cirrhosis of liver Status: Chronic Assessment and Plan: new diagnosis, probably alcohol related full work up pending he can follow-up in office (4) Alcohol abuse: Code(s): F10.10 - Alcohol abuse, uncomplicated Status: Chronic (5) Gastritis: Code(s): K29.70 - Gastritis, unspecified, without bleeding Status: Acute Subjective Date/time seen: 11/01/23 10:01 Interval history: egd and colonoscopy without signs of bleeding he is much better and going home Review of Systems Review of Systems: All systems reviewed & are unremarkable except as noted in HPI and below Exam Const: General: comfortable and no acute distress HENMT: Face/Nose/Sinus: Normal nares present Eyes: General: appearance normal, both eyes and all related structures Neck: Neck: supple Resp: Auscultation: clear to auscultation bilaterally Cardio: Rate: regular rate Rhythm: regular rhythm GI: Inspection: non-distended GI Palp: Yes Soft to palpation and No Tenderness to palpation present (GI) Auscultation: normal bowel sounds Skin: General skin exam: normal color Neuro: Speech: normal speech Motor exam (neuro): 5/5 motor strength present throughout Extrem: General: normal to inspection Psych: Mental Status: mental status grossly normal Objective Data Vital Signs Vital Signs: Vital Signs - 24 hr 10/31/23 20:34 10/31/23 20:00 11/01/23 06:00 Temperature 98.9 F 98.4 F Pulse Rate 89 73 Respiratory Rate 22 H 20 Blood Pressure 126/76 124/73 Pulse Oximetry 100 99 Oxygen Delivery Room Air 11/01/23 08:25 Temperature Pulse Rate Respiratory Rate Blood Pressure Pulse Oximetry Oxygen Delivery Room Air Intake/Output Intake/Output: Intake & Output 10/29/23 10/30/23 10/31/23 11/01/23 23:59 23:59 23:59 23:59 Intake Total 350 6184.0 3042.7 960 Output Total 1225 Balance 350 4959.0 3042.7 960 Meds/Results Radiology Results: ITS Impressions Chest X-Ray 10/29/23 17:45 IMPRESSION: 1. No acute cardiopulmonary disease. Chest/Abdomen/Pelvis CT 10/29/23 18:50 IMPRESSION: 1. Cirrhosis of the liver with portal venous hypertension. Labs Labs: Laboratory Results - last 24 hr 10/31/23 11/01/23 11/01/23 16:48 05:10 11:02 WBC 4.5 RBC 3.13 L Hgb 7.3 L 7.0 L 7.6 L Hct 25.1 L 24.3 L 25.9 L MCV 77.6 L MCH 22.4 L MCHC 28.8 L RDW 26.5 H Plt Count 171 MPV 10.6 H Immature Gran % (Auto) 0.9 H Neut % (Auto) 72.4 Lymph % (Auto) 20.0 [place] % (Auto) 5.4 Eos % (Auto) 1.1 Baso % (Auto) 0.2 Lymph # (Auto) 0.89 L [place] # (Auto) 0.2 Eos # (Auto) 0.1 Baso # (Auto) 0.0 Abs Immat Gran (auto) 0.04 H Absolute Neuts (auto) 3.2 Absolute Nucleated RBC 0.020 H Nucleated RBC % 0.4 H Platelet Estimate Adequate % Immature Plt Fraction 5.3 Polychromasia 1+ Hypochromasia 2+ Anisocytosis 1+ Microcytosis 1+ Target Cells 1+ Schistocytes None seen Sodium 137 Potassium 3.4 Chloride 109 H Carbon Dioxide 20 L Anion Gap 8 BUN 4 L Creatinine 0.70 Estim Creat Clear Calc 131 Estimated GFR > 60 Glucose 76 Calcium 8.1 L Phosphorus 3.6 Magnesium 2.0 Total Bilirubin 2.3 H AST 62 H ALT 28
[2023-11-02 11:29] LABS: Haptoglobin 92 mg/dL (43-212)
[2023-11-02 12:57] LABS: Ceruloplasmin 36 mg/dL (14-30)
[2023-11-04 04:48] LABS: Actin Antibody (IgG) <20 U (<20)
[2023-11-04 19:43] LABS: Vitamin B6 11.2 ng/mL (2.1-21.7)
[2023-11-08 16:24] LABS: Mitochondrial (M2) Ab (IgG) <20.0 U
[2023-11-09 13:12] LABS: Vitamin B1 45 nmol/L
--- NOTE | 2023-11-18 07:50 | PC.NURSE ---
Faxed these labs to Dr. Arceo per Dr. Drummond request. Pathology results Haptoglobin Actin Ab IgG Alph 1 Antitrypsin Ceruloplasm
== END 2023-11-01 13:34 | disposition home or self-care (01) | DRG 378 ==
LOC: ANHED 20:40 → ANHICU 20:54 → ANH3MED 10-31 14:57
PROVIDERS: Internal Medicine; Internal Medicine Gastroenterology; Nurse Practitioner Adult Health; Admitting Provider Internal Medicine; Emergency Provider Physician Assistant; Visit Provider Internal Medicine
PROC: 0DJ08ZZ Inspection of Upper Intestinal Tract, Via Natural or Artificial Opening Endoscopic (ICD-10-PCS; CPT 43235; principal; 2023-10-31 08:00)
DX: K92.2 Gastrointestinal hemorrhage, unspecified (principal); K76.6 Portal hypertension; D50.0 Iron deficiency anemia secondary to blood loss (chronic); D50.9 Iron deficiency anemia, unspecified; K29.70 Gastritis, unspecified, without bleeding; K64.8 Other hemorrhoids; K70.30 Alcoholic cirrhosis of liver without ascites; F10.10 Alcohol abuse, uncomplicated; F17.210 Nicotine dependence, cigarettes, uncomplicated
CPT/HCPCS: 36415; 36430; 71046; 71260; 74177; 80053; 80074; 80307; 81001; 82104; 82140; 82274; 82390; 82607; 82728; 82746; 82948; 83010; 83520; 83540; 83550; 83615; 83735; 83880; 84100; 84207; 84425; 84443; 84466; 84484; 85014; 85018; 85025; 85046; 85055; 85380; 85610; 85730; 86140; 86364; 86850; 86880; 86900; 86901; 86923; 88305; 93005; 99285; A9270; G0378; J1756; J2405; J2470; J2704; J7030; J7042; J7050; J7120; P9016; Q9967

== ENCOUNTER 2023-12-06 06:02 | Outpatient (CLI) | payer BC, SELFPAY ==
--- NOTE | 2023-11-30 15:22 | SUR.PREOP ---
Spoke with patient in regards to [facility] capsule endoscopy. Patient did receive his instructions and I did run through those instructions with him. He stated he was at work but had all his papers at home and didn't have any further questions.
--- NOTE | 2023-12-06 06:46 | SUR.OPER ---
Patient brought to GI Lab. Instructions for patient undergoing Capsule Endoscopy reviewed with patient. Consent form signed. Sensor array applied to patient's abdomen and connected to recorded. Patient swallowed capsule with 2 cups of water infused with Simethicone. Patient instructed they may have clear liquids at 0830 this AM and eat or drink at 1030 this AM. Patient instructed to return to GI Lab at 1500 this afternoon for removal of recording device and to call [phone] or to return to the hospital if any nausea and vomiting or abdominal pain is experienced.
--- NOTE | 2023-12-06 15:36 | SUR.PHASEII ---
Patient returned to the GI Lab at 1500 for recorder box removal. Patient voiced no complaints. States they have understanding of instructions. Patient left ambulatory.
== END 2023-12-06 06:03 | disposition home or self-care (01) ==
LOC: ANHENDO 06:03
PROVIDERS: Visit Provider Internal Medicine Gastroenterology
PROC: 0DJ07ZZ Inspection of Upper Intestinal Tract, Via Natural or Artificial Opening (ICD-10-PCS; CPT 91110; principal; 2023-12-06 07:00)
DX: D64.9 Anemia, unspecified (principal); K92.2 Gastrointestinal hemorrhage, unspecified
CPT/HCPCS: 91110